=== PATIENT | female | born 1985 | race Two or more races ===

== ENCOUNTER → 2019-03-25 | Day surgery (SDC) | payer OTHER ==
[2019-03-23 15:54] LABS: BASOPHILS % 0.7 % (0.0-1.0); EOSINOPHILS # (AUTO) 0.1 (0.0-0.4); EOSINOPHILS % 0.9 % (0.0-6.0); HEMATOCRIT 31.1 % (34.2-44.1); HEMOGLOBIN 9.5 g/dL (12.0-16.0); LYMPHOCYTES # (AUTO) 1.5 (1.0-3.2); LYMPHOCYTES % 24.7 % (18.0-39.1); MEAN CORPUSCULAR HEMOGLOBIN 25.1 pg (28-32); MEAN CORPUSCULAR HGB CONC 30.5 g/dL (31-35); MEAN CORPUSCULAR VOLUME 82.1 fL (81-99); MONOCYTES # (AUTO) 0.3 (0.2-0.8); MONOCYTES % 5.3 % (4.4-11.3); NEUTROPHILS % 67.9 % (38.7-80.0); PLATELET COUNT 261 x10e3/uL (140-360); RED BLOOD COUNT 3.79 x10e6/uL (3.6-5.1); RED CELL DISTRIBUTION WIDTH 13.2 % (11.7-14.4)
[2019-03-23 15:58] LABS: BLOOD UREA NITROGEN 11 mg/dL (7-26); BUN/CREATININE RATIO 15 (6-25); CALCIUM 9.5 mg/dL (8.4-10.2); CARBON DIOXIDE 22 mmol/L (22-29); CHLORIDE 104 mmol/L (98-107); CREATININE, SERUM 0.72 mg/dL (0.57-1.11); EST GLOMERULAR FILTRATION RATE > 60 ML/MIN (60-); GLUCOSE 84 mg/dL (74-118); SODIUM 137 mmol/L (136-145)
[~2019-03-25] MED LIST: ACETAMINOPHEN 1000 MG/100 ML IV ONE; BETAMETHASONE DISODIUM PHOS 6 MG/ML VIAL ONE; CEFAZOLIN SOD 1 GM/NS 50ML 100 ML IV ONE; DEXAMETHASONE SOD PHOS INJ 4 MG/ML VIAL ONE; EPHEDRINE SULFATE INJ 50 MG/10 ML SYR ONE; FENTANYL CITRATE/PF 100MCG/2 ML INJ ONE; LIDOCAINE HCL 1% LOCAL INJ 20 ML VIAL ONE; LIDOCAINE HCL 2% LOCAL INJ 5 ML SDV VIAL INJ ONE; MIDAZOLAM HCL 2 MG/2 ML VIAL ONE; MUPIROCIN 2% OINT 22 GM TUBE ONE; ONDANSETRON HCL INJ 2MG/ML 2ML 2 MG/ML VIAL ONE; PROPOFOL IV EMULSION 10 MG/ML 20 ML VIAL ONE; RECLIPSEN1 EACH PO; SEVOFLURANE INHAL SOLN 250 ML PEN BTL ONE
[2019-03-25 09:55] VITALS: BP 137/93
--- NOTE | 2019-03-25 10:55 | Diagnostic Imaging Report ---
EXAMINATION: FOOT RIGHT AP LAT INDICATION: Postoperative COMPARISON: None FINDINGS: Portable AP and lateral radiographs of the right foot. Immediate postoperative findings of right first metatarsal osteotomy and fixation with a threaded screw and pin. There is also been K wire fixation of the second through fourth digits traversing the interphalangeal and MTP joints. Alignment appears near-anatomic. No unexpected fracture. Overlying splint material obscures fine bony detail. IMPRESSION: Postoperative findings of the right foot as above. Signed by: Rylan Guadalupe MD on 03/25/2019 10:52 AM
--- NOTE | 2019-03-25 14:32 | Operative Report ---
DATE OF PROCEDURE: 03/25/2019 SURGEON: Laith Hernandez DPM PREOPERATIVE DIAGNOSES: 1. Painful hallux valgus deformity, right foot. 2. Painful contracted hammertoe, 2nd digit, right foot. 3. Painful contracted hammertoe, 3rd digit, right foot. 4. Painful contracted hammertoe, 4th digit, right foot. 5. Painful contracted hammertoe, 5th digit, right foot. POSTOPERATIVE DIAGNOSES: Confirmed. OPERATIVE PROCEDURES: 1. Marito bunionectomy with screw fixation, right foot. 2. Arthroplasty of 2nd digit with K-wire fixation. 3. Arthroplasty of 3rd digit with K-wire fixation. 4. Arthroplasty of 4th digit with K-wire fixation. 5. Arthroplasty of 5th digit. 6. Intraoperative use of fluoroscopy. 7. Trigger point shot of cortisone. 8. Application of posterior splint. ANESTHESIA: General. HEMOSTASIS: Pneumatic thigh tourniquet at 350 mmHg. PROCEDURE IN DETAIL: The patient was taken into the operating room and placed on the operating table in the supine position. Following induction of general anesthesia by the anesthesiologist, Webril wraps were placed on the patient's right thigh followed by the application of right thigh tourniquet. The right lower extremity was then prepped and draped in the usual aseptic manner and following procedures were then performed. Procedure #1: Marito bunionectomy with screw fixation, right foot. Attention was directed to the dorsomedial aspect of the 1st MPJ, where a 6 cm linear incision was performed. Incision was deepened down to the joint capsule. Longitudinal capsulotomy was then performed exposing the dorsomedial exostosis of the 1st metatarsal head. Via the use of an oscillating saw, dorsomedial exostosis was excised from the operation site in toto. A V-osteotomy was then performed from medial to lateral. Capital fragment was then transpositioned laterally. Upon adequate surgical and anatomic reduction utilizing proper AO technique, a 2.0, 14 mm cortical screw in conjunction with a buried 0.045 K-wire was used to achieve stability of osteotomy site. All redundant bone medially was excised via the use of an oscillating saw and rotating bur. Procedures #2 through #5: Arthroplasty of 2nd through 5th with K-wire fixation 2nd through 4th. Attention was then directed to the dorsal aspect of the above-mentioned toes, where a 3 cm linear incision was performed. Incision was deepened down to the joint capsule. Transverse capsulotomy was then performed exposing the head of the proximal phalanx. Via the use of an oscillating saw, head of the proximal phalanxes were excised from the operation site in toto. Second through fourth toes were still noted to be contracted, so a 0.045 K-wire was introduced across the metatarsophalangeal joints to achieve proper anatomic reduction. Procedure #6: Intraoperative use of fluoroscopy was then used to make sure proper alignment and fixation was achieved. Closure was then obtained utilizing 3-0 Vicryl, 4-0 Vicryl, and 4-0 nylon for capsule, subcutaneous tissue, and skin respectively after properly and copiously flushing the area with saline. Procedure #7: Trigger point shot of cortisone was then given to the 1st and 4th interspace for the inflammation. Then, approximately 15 mL of 0.5% plain Marcaine plus 10 mL of 1% Xylocaine plain were used to achieve local anesthesia of the above-mentioned surgical area. Sterile dressing was applied. Upon release of the thigh tourniquet, blood hyperemia was noted immediate to all digits of the patient's right foot. Procedure #8: Application of posterior splint. A properly placed posterior splint was then applied keeping the foot at 90 degrees with respect to the leg to try for any type of postop complications. The patient was then transferred from the OR to recovery room with vital signs stable and neurovascular status intact. No intraoperative complications were encountered. Blood loss from the surgery was minimal. The patient is to remain nonweightbearing with the aid of crutches, keep her foot elevated, and is to apply an ice pack to the ankle joint area. SAROJ Urbano/MODL /[id number]
== END | disposition home or self-care (01) ==
LOC: OR 05:36
PROVIDERS: ATTEND Podiatrist Foot Surgery
DX: M20.11 Hallux valgus (acquired), right foot (principal); M20.41 Other hammer toe(s) (acquired), right foot; M79.671 Pain in right foot; Z01.812 Encounter for preprocedural laboratory examination; Z88.2 Allergy status to sulfonamides
CPT/HCPCS: 28285 ×4; 28296; 36415; 73620; 80048; 84702; 85025; C1713 ×2; J0131; J0690; J0720; J1100; J2001 ×2; J2250; J2405; J2704; J3010